=== PATIENT | male | born 1955 | race Caucasian/White ===

== ENCOUNTER → 2018-06-18 14:21 | Outpatient (CLI) | payer MEDICARE, MEDICAID, SELFPAY ==
[2018-06-18 14:36] LABS: Basophils % 0.4 % (0.1-2.0); Eosinophils % 0.5 % (0.1-12.0); Hematocrit 45.2 % (42.0-52.0); Lymphocytes # 1.5 K/mm3 (0.7-4.5); Lymphocytes % 19.5 % (10-50); Mean Corpuscular HGB Conc 33.3 g/dL (31.8-35.4); Mean Corpuscular Volume 102.2 fl (80-94); Mean Platelet Volume 9.1 fl (7.4-10.4); Monocytes # 0.4 K/mm3 (0.1-1.0); Monocytes % 5.2 % (1.7-9.3); Neutrophils # 5.7 K/mm3 (1.8-7.8); Neutrophils % 74.4 % (37.0-80.0); Platelet Count 223 K/mm3 (142-424); Red Blood Count 4.42 M/mm3 (4.60-6.20); Red Cell Distribution Width 13.7 % (11.5-17.5); White Blood Count 7.6 K/mm3 (4.8-10.8)
[2018-06-18 15:58] LABS: Alanine Aminotransferase 16 U/L (12-78); Albumin Level 4.1 gm/dL (3.4-5.0); Albumin/Globulin Ratio 1.2 (1.1-1.8); Alkaline Phosphatase 65 U/L (46-116); Anion Gap 18.5 mEq/L (5-15); Aspartate Amino Transferase 11 U/L (15-37); Bilirubin,Total 0.5 mg/dL (0.2-1.0); Blood Urea Nitrogen 8 mg/dL (7-18); Calcium 9.2 mg/dL (8.5-10.1); Carbon Dioxide 24 mmol/L (21.0-32.0); Chloride 101 mmol/L (98-107); Chol/HDL Ratio 2.9 (1-3.5); Cholesterol 197 mg/dL (140-200); Creatinine,Serum 0.91 mg/dL (0.70-1.30); Estimated Glomerular Filt Rate 84 ml/min (>60); Free T4 (Free Thyroxine) 0.87 ng/dl (0.76-1.46); GFR (African American) 101 ML/MIN (>60); Globulin 3.5 gm/dl (1.3-3.2); Glucose 94 mg/dL (74-106); HDL Cholesterol 68 mg/dL (27-67); LDL Cholesterol 117 mg/dL (0-130); Potassium 4.5 mmoL/L (3.5-5.1); Sodium 139 mmol/L (136-145); Thyroid Stimulating Hormone 2.16 uIU/ml (0.358-3.740); Total Protein,Serum 7.6 gm/dL (6.4-8.2); Triglycerides 58 mg/dL (30-200); VLDL Cholesterol 12 mg/dL (0-40)
== END ==
PROVIDERS: Visit Provider Emergency Medicine
DX: I73.9 Peripheral vascular disease, unspecified (principal); E78.00 Pure hypercholesterolemia, unspecified; R53.83 Other fatigue; M54.9 Dorsalgia, unspecified
CPT/HCPCS: 80053; 80061; 84439; 84443; 85025

== ENCOUNTER → 2018-07-03 09:43 | Outpatient (CLI) | payer MEDICARE, MEDICAID, SELFPAY ==
--- NOTE | 2018-07-03 09:49 | CI_ITS ---
Cerebrovascular Exam Indications: 785.9 Bruit. IMPRESSIONS 1. The bilateral vertebral arteries are patent with normal antegrade flow. 2. Study suggests less than 20% stenosis involving the right internal carotid artery. 3. Study suggests less than 20% stenosis involving the left internal carotid artery. History: Coronary artery disease. Risk factors: Lifelong nonsmoker. Carotid duplex study. Complete study and Doppler flow study including spectral analysis, color and farr scale imaging. Height: Height: 170.2cm. Height: 67in. Weight: Weight: 63.1kg. Weight: 138.7lb. Body mass index: BMI: 21.8kg/m^2. Body surface area: BSA: 1.73m^2. Location: Vascular laboratory. Patient status: Outpatient. Tables: Arterial flow: + +--------+--------+ Location V sys V ed + +--------+--------+ Right CCA - proximal 136cm/s 16.5cm/s + +--------+--------+ Right CCA - distal 99.8cm/s 22cm/s + +--------+--------+ Right ECA 84.9cm/s 11.8cm/s + +--------+--------+ Right ICA - proximal 77cm/s 19.6cm/s + +--------+--------+ Right ICA - mid 96.6cm/s 33cm/s + +--------+--------+ Right ICA - distal 86.4cm/s 22.8cm/s + +--------+--------+ Right vertebral 42.4cm/s 9.4cm/s + +--------+--------+ Left CCA - proximal 157cm/s 21.6cm/s + +--------+--------+ Left CCA - distal 169cm/s 27.5cm/s + +--------+--------+ Left ECA 138cm/s 13.8cm/s + +--------+--------+ Left ICA - proximal 61.9cm/s 15.7cm/s + +--------+--------+ Left ICA - mid 99.2cm/s 27.5cm/s + +--------+--------+ Left ICA - distal 107cm/s 33.4cm/s + +--------+--------+ Left vertebral 74.6cm/s 18.7cm/s + +--------+--------+ Velocity ratios: + + + + + + Right, V sys Right, V ed Left, V sys Left, V ed + + + + + + Max ICA/dist CCA 0.97 1.5 0.63 1.21 + + + + + + (Report amended ) Electronically signed by: Casper Fernandez [id number]
--- NOTE | 2018-07-03 09:49 | CA_ITS ---
PROCEDURE: 2-D M-mode and color Doppler study INDICATIONS FOR THE TEST: Chest pain COPD Heart Murmur+ Tobacco Smoking+ Palpitations Fatigue Syncope Edema Hypertension Diabetes Mellitus Rheumatic Fever SOB ALVARADO Obesity Hyperlipidemia Family History HD Additional History STENT,CAD PATIENT INFORMATION HEIGHT: 67 WEIGHT:139 GENDER: Male B/P:150/90 2-D/M-MODE INTERPRETATION: 2-D MEASUREMENTS OBSERVED VALUES IN CMS Right Ventricular Dimension (RVDd) 2.5 Interventricular Septum (Thickness)(IVsd) 1.5 Left Ventricular Internal Dimensions(LVIDd) 4.7 Left Ventricular Posterior Wall (Thickness)(LVPWd) 0.9 Aortic Root 3.5 Aortic Cusp Separation 2.1 Left Atrial Dimensions (LAD) 3.1 2D 1. Left atrium is mildly enlarged, left ventricle is normal size, mild qualitative concentric left ventricular hypertrophy, visually estimated ejection fraction 45-50%, there is mild inferior wall hypokinesis. 2. Right atrium and right ventricle are normal size and contractility. 3. The aortic valve is minimally thickened and fibrosed. 4. The mitral and tricuspid valve leaflets are minimally thickened identified. 5. The pulmonic valve is poorly visualized 6. No significant pericardial effusion noted. DOPPLER INTERROGATION: Doppler interrogation of the aortic, mitral and tricuspid valvular presence of mild mitral and tricuspid regurgitation, tricuspid regurgitation jet velocity is inadequate for calculation of the right ventricular systolic pressure, diastolic parameters are inconclusive. CONCLUSION 1. Mildly enlarged left atrium, normal left ventricular size, mild qualitative concentric left ventricular hypertrophy, visually estimated with mild inferior wall hypokinesis. Diastolic parameters are inconclusive. 2. Mild mitral and tricuspid regurgitation 3. No significant pericardial effusion noted.
== END ==
PROVIDERS: PCP Emergency Medicine; Visit Provider Emergency Medicine
DX: R09.89 Other specified symptoms and signs involving the circulatory and respiratory systems (principal); I25.10 Atherosclerotic heart disease of native coronary artery without angina pectoris; R01.1 Cardiac murmur, unspecified
CPT/HCPCS: 93306; 93880

== ENCOUNTER → 2018-07-07 13:27 | Outpatient (CLI) | payer MEDICARE, MEDICAID, SELFPAY ==
[2018-07-07 18:59] LABS: Amphetamine/Metha Screen,Urine Negative ng/mL (<1000); Barbiturates Screen,Urine Negative ng/mL (<200); Benzodiazepines Screen,Urine Negative ng/mL (<200); Cannabinoid Screen,Urine Positive ng/mL (<50); Cocaine Screen,Urine Negative ng/mL (<300); Methadone Screen,Urine Negative ng/mL (<300); Opiate Screen,Urine Negative ng/mL (<300); Phencyclidine Screen,Urine Negative ng/mL (<25)
[2018-07-13 10:11] LABS: Oxycodone Positive (.); Oxymorphone Positive (.)
[2018-07-14 07:02] LABS: Oxycodone Confirm 1379 ng/mL (Cutoff=100); Oxymorphone Confirm 1706 ng/mL (Cutoff=100)
== END ==
PROVIDERS: Visit Provider Emergency Medicine
DX: Z79.899 Other long term (current) drug therapy (principal)
CPT/HCPCS: 80305; 80365

== ENCOUNTER → 2018-08-05 14:12 | Outpatient (CLI) | payer MEDICARE, MEDICAID, SELFPAY ==
[2018-08-05 15:07] LABS: Amphetamine/Metha Screen,Urine Negative ng/mL (<1000); Barbiturates Screen,Urine Negative ng/mL (<200); Benzodiazepines Screen,Urine Negative ng/mL (<200); Cannabinoid Screen,Urine Positive ng/mL (<50); Cocaine Screen,Urine Negative ng/mL (<300); Methadone Screen,Urine Negative ng/mL (<300); Opiate Screen,Urine Negative ng/mL (<300); Phencyclidine Screen,Urine Negative ng/mL (<25)
[2018-08-11 14:32] LABS: Opiates Negative ng/mL (Cutoff=100)
== END ==
PROVIDERS: Visit Provider Nurse Practitioner Family
DX: G89.29 Other chronic pain (principal)
CPT/HCPCS: 80305; 80361; G0480

== ENCOUNTER → 2018-08-08 09:03 | Outpatient (CLI) | payer MEDICARE, MEDICAID, SELFPAY ==
--- NOTE | 2018-08-08 09:04 | MR_ITS ---
MR lumbar spine wo con HISTORY: Low back pain ITS.REASON: back pain ORDERING PHYSICIAN: Riki Kruse MD PATIENT AGE: 63 years Comparison: None TECHNIQUE: Standard multiplanar multiecho sequences are performed without contrast. 3-D MIP and myelographic images are also rendered and reviewed FINDINGS: There is normal limits. The cord ends at the L2 level. L2-L3: Unremarkable. L3-L4: Mild concentric bulging disc along with facet and ligamentum flavum hypertrophy with mild bilateral lateral recess and moderate bilateral foraminal narrowing. Increased T1 and T2 signal involves the anterosuperior aspect of L4 consistent with endplate changes L4-L5: Mild concentric bulging disc along with facet and ligamentum flavum hypertrophy with moderate bilateral foraminal narrowing. L5-S1: Bulging disc along with facet and ligamentum flavum hypertrophy. This is slightly eccentric toward the left. There is moderate to severe bilateral foraminal narrowing slightly greater on the right. There is hypertrophic change of the right SI joint. IMPRESSION: 1. L3-L4: Mild concentric bulging disc along with facet and ligamentum flavum hypertrophy with mild bilateral lateral recess and moderate bilateral foraminal narrowing. Increased T1 and T2 signal involves the anterosuperior aspect of L4 consistent with endplate changes 2. L4-L5: Mild concentric bulging disc along with facet and ligamentum flavum hypertrophy with moderate bilateral foraminal narrowing. 3. L5-S1: Bulging disc along with facet and ligamentum flavum hypertrophy. This is slightly eccentric toward the left. There is moderate to severe bilateral foraminal narrowing slightly greater on the right. 4. No extruded herniated disc evident
== END ==
PROVIDERS: PCP Emergency Medicine; Visit Provider Emergency Medicine
DX: M54.9 Dorsalgia, unspecified (principal); G89.29 Other chronic pain; M54.5 Low back pain
CPT/HCPCS: 72148; 76376

== ENCOUNTER → 2019-01-02 13:31 | Outpatient (CLI) | payer MEDICARE, MEDICAID, SELFPAY ==
[2019-01-02 15:00] LABS: Amphetamine/Metha Screen,Urine Negative ng/mL (<1000); Barbiturates Screen,Urine Negative ng/mL (<200); Benzodiazepines Screen,Urine Negative ng/mL (<200); Cannabinoid Screen,Urine Positive ng/mL (<50); Cocaine Screen,Urine Negative ng/mL (<300); Methadone Screen,Urine Negative ng/mL (<300); Opiate Screen,Urine Negative ng/mL (<300); Phencyclidine Screen,Urine Negative ng/mL (<25)
[2019-01-11 22:47] LABS: Opiates Negative (Cutoff=100)
== END ==
PROVIDERS: Visit Provider Emergency Medicine
DX: Z79.899 Other long term (current) drug therapy (principal)
CPT/HCPCS: 80305; 80361; 80365; G0480

== ENCOUNTER → 2019-02-09 09:48 | Outpatient (POV) | payer MEDICARE, MEDICAID, SELFPAY ==
[2019-02-09 09:59] VITALS: BP 143/84; PULSE 86; RESP 18; O2SAT 99; BMI 24.0
--- NOTE | 2019-02-09 12:53 | HMH.PMCON ---
Assessment and Plan (1) Foraminal stenosis of lumbar region Current visit: No Status: Chronic Category: Medical Code(s): M99.83 - Other biomechanical lesions of lumbar region (2) Lumbar disc disease with radiculopathy Current visit: No Status: Chronic Category: Medical Code(s): M51.16 - Intervertebral disc disorders with radiculopathy, lumbar region - Assessment and plan all Dx Assessment and Plan for all problems:: I discussed with the patient about some conservative ways of treating his pain. Patient states he will think about it. I also discussed epidural steroid injections he states he will also think about this. He would like to speak with his daughter first prior to making any decisions. At this point the patient is not a candidate for narcotics per our clinic policy patient has not completed conservative therapies or been seen by a surgeon. If the patient is interested in moving forward with injections we will schedule him an L4-L5 epidural steroid injection to help determine his baseline pain. Patient states he will call us back if he is interested in any form of treatment. Dr. Santana has reviewed this note and agrees with this plan of care. This note was dictated using voice recognition software and may contain errors or omissions HPI - Data of Consult Consult date: 02/09/19 Requesting Physician: Era Card APRN Primary Care Provider: Riki Kruse MD - Consult Narrative Reason for consult: Back pain, leg pain History of present illness: Mr. Turner is a 63 year old male who presents today for consultation in regards to his low back pain. He rates his pain an 8 out of 10. Patient states he has had back pain for many years. Patient states he is never tried any injection therapy, physical therapy, massage therapy, chiropractic therapy. Patient's only treatment as of yet is Percocet. Patient does have an MRI showing some degeneration along with ligamentum flavum hypertrophy and bulging disc. We did go over this together. Patient states that he drinks at least a 12 pack a week. He is also utilizing marijuana. CC: Era Card APRN [facility] History I have reviewed the patient's past medical history: Yes Medical History: Reports:: Coronary Artery Disease, Hyperlipidemia, Hypertension, Myocardial Infarction *Have you ever received a pneumonia vaccine?: Yes *Have you received a flu vaccine this season?: Yes Other Surgeries: Yes: Cardiac Catheterization, Coronary Stent Amputation: No Fractures: Yes (ribs from a fall) - *Social History Smoking Status: Current every day smoker Tobacco Type: cigarettes # Packs/Day (cigarettes): 1 #Yrs smoked (if former smoker): 50 Alcohol Intake: current Alcohol Intake Frequency:: a few times a week Substance Use Type: marijuana Last Used Substance: unknown *Occupational Status:: other Housing: house Household Members: other *Travel in the last 8 weeks: None Family Hx:: Cancer, Heart Attack Review of Systems - Review of Systems ROS General: no recent weight change, no fever, no sleep disturbances Respiratory: no cough, no shortness of air, no recurring pulmonary infections Cardiovascular/Peripheral Vascular: No chest pain, No palpitations, no edema, no shortness of breath. Gastrointestinal: no incontinence, normal bowel movements reported Genitourinary: no incontinence Musculoskeletal: Back pain, leg pain Psychiatric: normal mood/ affect Neurological: [denies weakness in extremities], [denies balance issues] Meds Home Medications Medication Instructions Recorded Confirmed Type clopidogrel 75 mg tablet 75 mg PO DAILY #90 tab 10/10/18 01/02/19 Rx gabapentin 100 mg capsule 100 mg PO TID #90 cap 10/10/18 01/02/19 Rx nitroglycerin 0.4 mg sublingual 0.4 mg SUBLINGUAL Q5-15M PRN #30 10/10/18 01/02/19 Rx tablet tab oxycodone-acetaminophen 10 mg-325 1 tab PO QID PRN #120 tab 01/02/19 Rx mg tablet Allergies Allergy/A
--- NOTE | 2019-02-09 13:01 | P.CONS_ITS ---
Assessment and Plan (1) Foraminal stenosis of lumbar region Current visit: No Status: Chronic Category: Medical Code(s): M99.83 - Other biomechanical lesions of lumbar region (2) Lumbar disc disease with radiculopathy Current visit: No Status: Chronic Category: Medical Code(s): M51.16 - Intervertebral disc disorders with radiculopathy, lumbar region - Assessment and plan all Dx Assessment and Plan for all problems:: I discussed with the patient about some conservative ways of treating his pain. Patient states he will think about it. I also discussed epidural steroid injections he states he will also think about this. He would like to speak with his daughter first prior to making any decisions. At this point the patient is not a candidate for narcotics per our clinic policy patient has not completed conservative therapies or been seen by a surgeon. If the patient is interested in moving forward with injections we will schedule him an L4-L5 epidural steroid injection to help determine his baseline pain. Patient states he will call us back if he is interested in any form of treatment. Dr. Santana has reviewed this note and agrees with this plan of care. This note was dictated using voice recognition software and may contain errors or omissions HPI - Data of Consult Consult date: 02/09/19 Requesting Physician: Era Card APRN Primary Care Provider: Riki Kruse MD - Consult Narrative Reason for consult: Back pain, leg pain History of present illness: Mr. Turner is a 63 year old male who presents today for consultation in regards to his low back pain. He rates his pain an 8 out of 10. Patient states he has had back pain for many years. Patient states he is never tried any injection therapy, physical therapy, massage therapy, chiropractic therapy. Patient's only treatment as of yet is Percocet. Patient does have an MRI showing some degeneration along with ligamentum flavum hypertrophy and bulging disc. We did go over this together. Patient states that he drinks at least a 12 pack a week. He is also utilizing marijuana. CC: Era Card APRN [facility] History I have reviewed the patient's past medical history: Yes Medical History: Reports:: Coronary Artery Disease, Hyperlipidemia, Hypertension, Myocardial Infarction *Have you ever received a pneumonia vaccine?: Yes *Have you received a flu vaccine this season?: Yes Other Surgeries: Yes: Cardiac Catheterization, Coronary Stent Amputation: No Fractures: Yes (ribs from a fall) - *Social History Smoking Status: Current every day smoker Tobacco Type: cigarettes # Packs/Day (cigarettes): 1 #Yrs smoked (if former smoker): 50 Alcohol Intake: current Alcohol Intake Frequency:: a few times a week Substance Use Type: marijuana Last Used Substance: unknown *Occupational Status:: other Housing: house Household Members: other *Travel in the last 8 weeks: None Family Hx:: Cancer, Heart Attack Review of Systems - Review of Systems ROS General: no recent weight change, no fever, no sleep disturbances Respiratory: no cough, no shortness of air, no recurring pulmonary infections Cardiovascular/Peripheral Vascular: No chest pain, No palpitations, no edema, no shortness of breath. Gastrointestinal: no incontinence, normal bowel movements reported Genitourinary: no incontinence Musculoskeletal: Back pain, leg pain Psychiatric: normal mood/ affect Neurological: [denies weakness in extremities], [denies balance issues] Meds H
== END ==
PROVIDERS: PCP Emergency Medicine; Visit Provider Clinical Nurse Specialist Family Health
DX: M48.061 Spinal stenosis, lumbar region without neurogenic claudication (principal); M51.16 Intervertebral disc disorders with radiculopathy, lumbar region
CPT/HCPCS: 99202

== ENCOUNTER → 2019-03-04 15:47 | Outpatient (CLI) | payer MEDICARE, MEDICAID, SELFPAY ==
[2019-03-04 19:55] LABS: Amphetamine/Metha Screen,Urine Negative ng/mL (<1000); Barbiturates Screen,Urine Negative ng/mL (<200); Benzodiazepines Screen,Urine Negative ng/mL (<200); Cannabinoid Screen,Urine Positive ng/mL (<50); Cocaine Screen,Urine Negative ng/mL (<300); Methadone Screen,Urine Negative ng/mL (<300); Opiate Screen,Urine Negative ng/mL (<300); Phencyclidine Screen,Urine Negative ng/mL (<25)
[2019-03-16 05:09] LABS: Oxycodone Positive (.); Oxymorphone Positive (.)
[2019-03-17 06:50] LABS: Oxycodone Confirm 1306 ng/mL (Cutoff=100); Oxymorphone Confirm 1670 ng/mL (Cutoff=100)
== END ==
PROVIDERS: Visit Provider Emergency Medicine
DX: M47.816 Spondylosis without myelopathy or radiculopathy, lumbar region (principal)
CPT/HCPCS: 80305; 80365

== ENCOUNTER → 2019-05-04 14:05 | Outpatient (CLI) | payer MEDICARE, MEDICAID, SELFPAY ==
[2019-05-04 16:57] LABS: Amphetamine/Metha Screen,Urine Negative ng/mL (<1000); Barbiturates Screen,Urine Negative ng/mL (<200); Benzodiazepines Screen,Urine Negative ng/mL (<200); Cannabinoid Screen,Urine Positive ng/mL (<50); Cocaine Screen,Urine Negative ng/mL (<300); Methadone Screen,Urine Negative ng/mL (<300); Opiate Screen,Urine Negative ng/mL (<300); Phencyclidine Screen,Urine Negative ng/mL (<25)
[2019-05-10 13:17] LABS: Oxycodone Positive (.); Oxymorphone Positive (.)
[2019-05-10 17:24] LABS: Oxycodone Confirm 876 ng/mL (Cutoff=100); Oxymorphone Confirm 1877 ng/mL (Cutoff=100)
== END ==
PROVIDERS: Visit Provider Emergency Medicine
DX: M47.816 Spondylosis without myelopathy or radiculopathy, lumbar region (principal); Z79.899 Other long term (current) drug therapy
CPT/HCPCS: 80305; 80365

== ENCOUNTER → 2019-08-25 13:41 | Outpatient (CLI) | payer MEDICARE, MEDICAID, SELFPAY ==
[2019-08-25 15:11] LABS: Amphetamine/Metha Screen,Urine Negative ng/ml (<1000); Barbiturates Screen,Urine Negative ng/ml (<200)
[2019-08-25 15:12] LABS: Benzodiazepines Screen,Urine Negative ng/ml (<200)
[2019-08-25 15:13] LABS: Cannabinoid Screen,Urine Positive ng/ml (<50)
[2019-08-25 15:15] LABS: Cocaine Screen,Urine Negative ng/ml (<300); Methadone Screen,Urine Negative ng/ml (<300)
[2019-08-25 15:16] LABS: Opiate Screen,Urine Negative ng/ml (<300)
[2019-08-25 15:17] LABS: Phencyclidine Screen,Urine Negative ng/ml (<25)
[2019-08-31 07:05] LABS: Oxycodone (GC/MS) 397 ng/mL (Cutoff=100)
[2019-08-31 10:03] LABS: Opiates Negative (Cutoff=100); Oxymorphone (GC/MS) 400 ng/mL (Cutoff=100)
== END ==
PROVIDERS: Visit Provider Emergency Medicine
DX: M47.816 Spondylosis without myelopathy or radiculopathy, lumbar region (principal); Z79.899 Other long term (current) drug therapy
CPT/HCPCS: 80305; 80361; 80365; G0480

== ENCOUNTER → 2019-11-03 13:32 | Outpatient (CLI) | payer MEDICARE, MEDICAID, SELFPAY ==
--- NOTE | 2019-11-03 13:58 | MR_ITS ---
PROCEDURE: MR LUMBAR SPINE WO CON CLINICAL INDICATION: back pain Low back pain, fall with injury and pain with persistent pain COMPARISON: SPLUMBWO MR lumbar spine wo con from 08/08/2018 TECHNIQUE: Standard multiplanar multiecho sequences are performed without contrast. 3-D MIP and myelographic images are also rendered and reviewed FINDINGS: There is normal alignment. The spinal cord ends at the L2 level. There is a transitional segment at the lumbosacral junction and is labeled as S1 similar to the previous exam. L1-L2 and L2-L3 have an unremarkable appearance. L3-L4: Minimal bulging disc with facet ligamentum hypertrophy with mild bilateral lateral recess and moderate bilateral foraminal narrowing the. There remains increased signal intensity involving the anterior superior aspect of L4 vertebral body on both T1 and T2 weighted images. L4-5: Bulging disc with facet and ligamentum hypertrophy with moderate bilateral lateral recess and foraminal narrowing as before. There is borderline narrowing of the canal unchanged L5-S1: Bulging disc slightly eccentric toward the left with moderate facet and ligamentum hypertrophy with moderate bilateral foraminal narrowing. There is an area of increased T2 signal along the anterior left aspect of S1 measuring approximately 2 cm.. This could be related to type 1 endplate changes. This is not significantly changed. There is borderline narrowing of the canal unchanged No extruded herniated disc evident. Overall no significant change. IMPRESSION: 1. Multilevel lumbar spondylosis with bulging discs along with facet ligamentum hypertrophy with foraminal and lateral recess narrowing and borderline narrowing of the canal. Please see above for detailed description at each level. Overall not significantly changed from 08/08/2018 2. No extruded herniated disc. 3. Increased T2 signal of the S1 vertebral body on the left anteriorly which could be due to endplate changes which are not significantly changed Dictated by: Casper Fernandez MD 11/04/2019 18:01 Electronically signed by Casper Fernandez MD in [place] 11/04/2019 18:01
== END ==
PROVIDERS: PCP Emergency Medicine; Visit Provider Emergency Medicine
DX: M47.816 Spondylosis without myelopathy or radiculopathy, lumbar region (principal)
CPT/HCPCS: 72148; 76376

== ENCOUNTER → 2020-07-20 08:35 | Outpatient (CLI) | payer MEDICARE, MEDICAID, SELFPAY ==
--- NOTE | 2020-07-20 08:36 | CA_ITS ---
APPROVED REPORT Pastoral Worker: XOCHITL Laterality: Bilateral Indications: bruit, CAD Risk Factors Hyperlipidemia Smoking Doppler Spectral Velocity Analysis ECA (R) 100.20/17.10 cm/s ECA (L) 140.90/20.50 cm/s dICA (R) 86.80/29.20 cm/s dICA (L) 97.60/30.60 cm/s Andie (R) 95.00/27.70 cm/s Andie (L) 84.70/27.00 cm/s pICA (R) 67.30/23.90 cm/s pICA (L) 87.00/17.60 cm/s dCCA (R) 116.60/26.70 cm/s dCCA (L) 112.80/25.10 cm/s pCCA (R) 124.00/20.30 cm/s pCCA (L) 137.90/27.90 cm/s Vert (R) 33.40/11.60 cm/s Vert (L) 76.90/25.60 cm/s ICA/CCA 0.82 ICA/CCA 0.86 Findings Duplex evaluation demonstrates stenosis of the right proximal internal carotid artery <20% with PSV <140 cm/sec, EDV <100 cm/sec, and IC/CC Ratio <4.0. Duplex evaluation demonstrates stenosis of the left proximal internal carotid artery <20% with PSV <140 cm/sec, EDV <100 cm/sec, and IC/CC Ratio <4.0. Conclusion No increased velocities to suggest hemodynamically significant stenosis in either internal carotid artery. Electronically signed by : Casper Fernandez MD 07/20/2020 15:48:24
--- NOTE | 2020-07-20 08:36 | CA_ITS ---
APPROVED REPORT EXAM: Comprehensive 2D, Doppler, and color-flow Echocardiogram Procurement Coordinator: Nafisa Rinaldi, RT(R) Ht: 5 ft 7 in Wt: 132lbs BSA: 1.70 BP: 122/70 mmHg Indications: Murmur, smoker, hyperlipidemia, CAD, old [place], stent, facet syndrome 2D Dimensions LVOT 2.02 cm (M/F) 1.5-2.5 M-Mode Dimensions RVDd 2.54 cm (0.9-2.6) LA Diam 3.66 cm (1.9-4.0) LVDd 5.15 cm (3.5-5.7) Ao Diam 3.05 cm (2.0-3.7) LVDs 4.01 cm (3.5-5.7) IVSd 0.79 cm (0.6-1.1) PWd 0.68 cm (0.6-1.1) EF (Teich) 44.40% FS 22.10% EDV (Teich) 126.60 mL ESV (Teich) 70.40 mL LV Diastology E Decel Time 183.00 (160-240 msec) E/A Ratio 1.0 MED E' 12.40 (< 7 cm/sec) E'/MED E' Ratio 4.52 (>14) LAT E' 9.20 (<10 cm/sec) E/LAT E' Ratio 6.10 (>14) Mitral Valve MV E Max Bobby. 56.00 (40-130 cm/s) MV A Velocity 55.00 (40-130 cm/s) E/A Ratio 1.02 MV Decel. Time 183.00 (160-240 ms) MV PHT 54.00 ms Left Ventricle Left atrium is mildly enlarged, left ventricle is normal size, visually estimated ejection fraction 55% with no regional wall motion abnormality, diastolic parameters are inconclusive. Right Ventricle Right atrium and right ventricular qualitatively mildly enlarged with normal contractility. Aortic Valve Aortic valve is thickened and calcified leaflet chordae display good mobility, there is no aortic stenosis or aortic insufficiency. Mitral Valve Mitral valve is grossly normal, there is mild mitral regurgitation. Tricuspid Valve Tricuspid valve is grossly normal, there is mild tricuspid regurgitation, tricuspid regurgitation jet velocity is inadequate for calculation of the right ventricular systolic pressure. Pulmonic Valve Pulmonic valve is poorly visualized. Great Vessels Aortic root is normal size. Pericardium No significant pericardial effusion noted. Conclusion 1. Normal left ventricular size, preserved left ventricular systolic function, visually estimated ejection fraction 55% with no regional wall motion abnormality, diastolic parameters are inconclusive. 2. Mildly enlarged right ventricle with normal contractility. 3. Thickened and calcified aortic valve without aortic stenosis or aortic insufficiency. 4. Mild mitral and tricuspid regurgitation. 5. No significant pericardial effusion noted. Electronically signed by : Helder Garcia, 07/21/2020 15:24:47
[2020-07-20 10:24] LABS: Basophils # 0.1 K/mm3 (0-0.2); Basophils % 0.8 % (0.1-2.0); Eosinophils # 0.1 K/mm3 (0.0-0.4); Eosinophils % 0.8 % (0.1-12.0); Hematocrit 46.6 % (42.0-52.0); Hemoglobin 15.1 g/dL (14.1-18.0); Lymphocytes # 1.4 K/mm3 (0.7-4.5); Lymphocytes % 19.7 % (10-50); Mean Corpuscular HGB Conc 32.5 g/dL (31.8-35.4); Mean Corpuscular Hemoglobin 34.3 pg (27.0-31.2); Mean Corpuscular Volume 105.4 fl (80-94); Mean Platelet Volume 8.8 fl (7.4-10.4); Monocytes # 0.4 K/mm3 (0.1-1.0); Monocytes % 5.5 % (1.7-9.3); Neutrophils # 5.4 K/mm3 (1.8-7.8); Neutrophils % 73.2 % (37.0-80.0); Platelet Count 145 K/mm3 (142-424); Red Blood Count 4.42 M/mm3 (4.60-6.20); Red Cell Distribution Width 14.1 % (11.5-17.5); White Blood Count 7.3 K/mm3 (4.8-10.8)
[2020-07-20 13:26] LABS: Alanine Aminotransferase 9 U/L (12-78); Albumin Level 4.4 g/dl (3.5-5.0); Albumin/Globulin Ratio 1.6 (1.1-1.8); Alkaline Phosphatase 71 U/L (38-126); Anion Gap 8.8 mEq/L (5-15); Aspartate Amino Transferase 22 U/L (17-59); Bilirubin,Total 0.7 mg/dl (0.2-1.3); Blood Urea Nitrogen 7 mg/dl (9-20); Calcium 9.6 mg/dl (8.4-10.2); Carbon Dioxide 30 mmol/L (22.0-30.0); Chloride 105 mmol/L (98-107); Cholesterol 168 mg/dl (140-200); Estimated Glomerular Filt Rate 96 ml/min (>60); GFR (African American) 117 ML/MIN (>60); Globulin 2.8 g/dL (1.3-3.2); Glucose 100 mg/dl (74-100); HDL Cholesterol 83 mg/dl (40-60); Potassium 4.8 mmoL/L (3.5-5.1); Sodium 139 mmol/L (136-145); Total Protein,Serum 7.2 g/dl (6.3-8.2); Triglycerides 113 mg/dl (30-150); VLDL Cholesterol 23 mg/dL (0-40)
[2020-07-20 13:37] LABS: Direct LDL Cholesterol 61.97 mg/dL (100-129)
[2020-07-20 13:43] LABS: Free T4 (Free Thyroxine) 0.93 ng/dl (0.78-2.19)
[2020-07-20 13:56] LABS: Thyroid Stimulating Hormone 2.04 uIU/mL (0.465-4.68)
== END ==
PROVIDERS: PCP Emergency Medicine; Visit Provider Emergency Medicine
DX: R01.1 Cardiac murmur, unspecified (principal); R09.89 Other specified symptoms and signs involving the circulatory and respiratory systems; R53.83 Other fatigue; E78.5 Hyperlipidemia, unspecified
CPT/HCPCS: 36415; 80053; 80061; 84439; 84443; 85025; 93306; 93880

== ENCOUNTER → 2020-08-08 14:15 | Outpatient (CLI) | payer MEDICARE, MEDICAID, SELFPAY ==
[2020-08-08 15:53] LABS: Amphetamine/Metha Screen,Urine Negative ng/ml (<1000)
[2020-08-08 15:54] LABS: Barbiturates Screen,Urine Negative ng/ml (<200); Benzodiazepines Screen,Urine Negative ng/ml (<200)
[2020-08-08 15:55] LABS: Cannabinoid Screen,Urine Positive ng/ml (<50)
[2020-08-08 15:56] LABS: Cocaine Screen,Urine Negative ng/ml (<300); Methadone Screen,Urine Negative ng/ml (<300)
[2020-08-08 15:57] LABS: Opiate Screen,Urine Negative ng/ml (<300)
[2020-08-08 15:58] LABS: Phencyclidine Screen,Urine Negative ng/ml (<25)
== END ==
PROVIDERS: Visit Provider Emergency Medicine
DX: M47.816 Spondylosis without myelopathy or radiculopathy, lumbar region (principal)
CPT/HCPCS: 80305

== ENCOUNTER → 2021-02-01 11:10 | Outpatient (CLI) | payer MEDICARE, MEDICAID, SELFPAY ==
--- NOTE | 2021-02-01 | CA_ITS ---
APPROVED REPORT Exam: Pharmacologic Technologist: Prerna Beavers, Ht: 5 ft 7 in Wt: 134 lbs BSA: 1.71 m2 HR: 65 bpm BP: 188/84 mmHg Medical History Medications: Gabapentin,,,,, PERCOCET,,,,, CloPIdogrel,,,,, Nitroglycerin,,,,, Stress Test Details Test: LEXISCAN HR Resting HR: 65 bpm Max Heart Rate (APMHR): 153.931481 bpm Max HR Achieved: 99 bpm Target HR (85% APMHR): 130.097180 bpm % of APMHR: 64.71 Recovery HR: 68 bpm BP Resting BP: 188/84 mmHg Max BP: 188/84 mmHg Recovery BP: 175.0/81.0 mmHg ECG Resting ECG: NSR, normal Clinical Exercise duration: 04:00 min Highest Stage Achieved: Exercise capacity: 1.0 METs Stress ECG Conclusion Symptoms: SOA, mild nausea. No CP. Arrhythmias/Ectopy: Occ PVC. ST-T Changes: No significant changes. Conclusion: Unremarkable Lexiscan stress. Myoview images reported separately. Electronically signed by : Helder Garcia MD 02/02/2021 14:52:39
--- NOTE | 2021-02-01 11:11 | NM_ITS ---
APPROVED REPORT Exam: Nuclear Stress Test Indication: CAD, HX CA, HTN, TOB USE, C.P., SOB, FATIGUE Patient Location: Outpatient Stress Tech: Prerna Beavers MT Tech:DEVON Virgen RT (R)(N)(M) Ht: 7 ft 5 in Wt: 140 lbs HR: 65 bpm BP: 188/84 mmHg BSA: 2.14 m2 BMI: 12.4 History: CAD, HX CA, HTN, TOB USE, C.P., SOB, FATIGUE Procedure: Patient received a 0.4 mg of intravenous Lexiscan, resting heart rate 65 bpm, resting blood pressure 188/84 mmHg, with Lexiscan maximum heart rate achived was 97 bpm which is 85 % of the maximum predicted heart rate and blood pressure was 165/77 mmHg. With Lexiscan, patient denied any complaint of chest pain. Electrocardiogram Resting electrocardiogram shows sinus rhythm, with Lexiscan there is less than 1.[address] segment depression noted from the baseline EKG. The EKG portion of the Lexiscan is nondiagnostic. Cardiac Stress and Resting SPECT Images: Cardiac Stress and Resting SPECT images were obtained using technetium 99m Myoview 30.7 mCi stress and 10.57 mCi at rest. Gated SPECT for analysis of segmental wall motion and calculation of the ejection fraction also done. Prone images were also obtained. Cardiac stress and resting SPECT images show a partial reversible defect moderate sized area involving the anterior apical and apical wall, consistent with mixed ischemia and scar, computer derived ejection fraction is 49% with moderate anterior apical wall hypokinesis, right ventricle is normal size and contractility. Conclusion: 1. The EKG portion of the Lexiscan is nondiagnostic. 2. Scintigraphic evidence of mixed ischemia and scar involving the anterior apical and apical wall, computer derived ejection fraction is 49% with segmental wall motion abnormality described above, right ventricle is normal size and contractility. 3. Abnormal Lexiscan Myoview study. Electronically signed by : Helder Garcia MD 02/02/2021 15:03:47
[2021-02-01 14:39] LABS: Amphetamine/Metha Screen,Urine Negative ng/ml (<1000)
[2021-02-01 14:40] LABS: Barbiturates Screen,Urine Negative ng/ml (<200); Benzodiazepines Screen,Urine Negative ng/ml (<200)
[2021-02-01 14:41] LABS: Cannabinoid Screen,Urine Positive ng/ml (<50)
[2021-02-01 14:42] LABS: Cocaine Screen,Urine Negative ng/ml (<300); Methadone Screen,Urine Negative ng/ml (<300)
[2021-02-01 14:43] LABS: Opiate Screen,Urine Negative ng/ml (<300); Phencyclidine Screen,Urine Negative ng/ml (<25)
== END ==
PROVIDERS: PCP Emergency Medicine; Visit Provider Emergency Medicine
DX: R07.9 Chest pain, unspecified (principal); M47.816 Spondylosis without myelopathy or radiculopathy, lumbar region
CPT/HCPCS: 78452; 80305; 93017; A9502; J2785

== ENCOUNTER → 2021-04-25 14:04 | Outpatient (CLI) | payer MEDICARE, MEDICAID, SELFPAY ==
[2021-04-25 14:47] LABS: Amphetamine/Metha Screen,Urine Negative ng/ml (<1000)
[2021-04-25 14:48] LABS: Barbiturates Screen,Urine Negative ng/ml (<200)
[2021-04-25 14:49] LABS: Benzodiazepines Screen,Urine Negative ng/ml (<200); Cannabinoid Screen,Urine Positive ng/ml (<50)
[2021-04-25 14:50] LABS: Cocaine Screen,Urine Negative ng/ml (<300)
[2021-04-25 14:51] LABS: Methadone Screen,Urine Negative ng/ml (<300); Opiate Screen,Urine Negative ng/ml (<300)
[2021-04-25 14:52] LABS: Phencyclidine Screen,Urine Negative ng/ml (<25)
== END ==
PROVIDERS: Visit Provider Emergency Medicine
DX: M47.816 Spondylosis without myelopathy or radiculopathy, lumbar region (principal)
CPT/HCPCS: 80305

== ENCOUNTER → 2021-07-21 14:53 | Outpatient (CLI) | payer MEDICARE, MEDICAID, SELFPAY ==
[2021-07-21 16:24] LABS: Barbiturates Screen,Urine Negative ng/ml (<200); Benzodiazepines Screen,Urine Negative ng/ml (<200)
[2021-07-21 16:25] LABS: Amphetamine/Metha Screen,Urine Negative ng/ml (<1000); Cannabinoid Screen,Urine Positive ng/ml (<50)
[2021-07-21 16:26] LABS: Cocaine Screen,Urine Negative ng/ml (<300)
[2021-07-21 16:27] LABS: Methadone Screen,Urine Negative ng/ml (<300); Opiate Screen,Urine Negative ng/ml (<300)
[2021-07-21 16:28] LABS: Phencyclidine Screen,Urine Negative ng/ml (<25)
== END ==
PROVIDERS: Visit Provider Emergency Medicine
DX: M47.816 Spondylosis without myelopathy or radiculopathy, lumbar region (principal)
CPT/HCPCS: 80305

== ENCOUNTER → 2021-11-13 09:16 | Outpatient (CLI) | payer MEDICARE, MEDICAID, SELFPAY ==
[2021-11-13 15:01] LABS: Amphetamine/Metha Screen,Urine Negative ng/ml (<1000); Barbiturates Screen,Urine Negative ng/ml (<200)
[2021-11-13 15:02] LABS: Benzodiazepines Screen,Urine Negative ng/ml (<200)
[2021-11-13 15:03] LABS: Cannabinoid Screen,Urine Positive ng/ml (<50); Cocaine Screen,Urine Negative ng/ml (<300)
[2021-11-13 15:04] LABS: Methadone Screen,Urine Negative ng/ml (<300)
[2021-11-13 15:05] LABS: Opiate Screen,Urine Negative ng/ml (<300); Phencyclidine Screen,Urine Negative ng/ml (<25)
== END ==
LOC: LAB 11-14 10:48 → LAB.DROPOF 11-14 10:52
PROVIDERS: PCP Emergency Medicine; Visit Provider Emergency Medicine
DX: M47.816 Spondylosis without myelopathy or radiculopathy, lumbar region (principal)
CPT/HCPCS: 80305

== ENCOUNTER → 2022-03-09 21:05 | Outpatient (CLI) | payer MEDICARE, MEDICAID, SELFPAY ==
[2022-03-09 16:32] LABS: Amphetamine/Metha Screen,Urine Negative ng/ml (<1000); Barbiturates Screen,Urine Negative ng/ml (<200)
[2022-03-09 16:34] LABS: Benzodiazepines Screen,Urine Negative ng/ml (<200)
[2022-03-09 16:35] LABS: Cannabinoid Screen,Urine Positive ng/ml (<50)
[2022-03-09 16:36] LABS: Cocaine Screen,Urine Negative ng/ml (<300)
[2022-03-09 16:37] LABS: Methadone Screen,Urine Negative ng/ml (<300); Opiate Screen,Urine Negative ng/ml (<300)
[2022-03-09 16:38] LABS: Phencyclidine Screen,Urine Negative ng/ml (<25)
== END ==
PROVIDERS: PCP Emergency Medicine; Visit Provider Emergency Medicine
DX: Z79.899 Other long term (current) drug therapy (principal)
CPT/HCPCS: 80305

== ENCOUNTER → 2022-05-08 10:45 | Outpatient (CLI) | payer MEDICARE, MEDICAID, SELFPAY ==
[2022-05-08 18:06] LABS: Amphetamine/Metha Screen,Urine Negative ng/ml (<1000)
[2022-05-08 18:07] LABS: Barbiturates Screen,Urine Negative ng/ml (<200)
[2022-05-08 18:08] LABS: Benzodiazepines Screen,Urine Negative ng/ml (<200)
[2022-05-08 18:09] LABS: Cannabinoid Screen,Urine Positive ng/ml (<50)
[2022-05-08 18:10] LABS: Cocaine Screen,Urine Negative ng/ml (<300); Methadone Screen,Urine Negative ng/ml (<300)
[2022-05-08 18:11] LABS: Opiate Screen,Urine Negative ng/ml (<300); Phencyclidine Screen,Urine Negative ng/ml (<25)
== END ==
PROVIDERS: PCP Emergency Medicine; Visit Provider Emergency Medicine
DX: M51.16 Intervertebral disc disorders with radiculopathy, lumbar region (principal)
CPT/HCPCS: 80305

== ENCOUNTER → 2022-07-04 14:57 | Outpatient (CLI) | payer MEDICARE, MEDICAID, SELFPAY ==
[2022-07-04 17:14] LABS: Amphetamine/Metha Screen,Urine Negative ng/ml (<1000)
[2022-07-04 17:15] LABS: Barbiturates Screen,Urine Negative ng/ml (<200); Benzodiazepines Screen,Urine Negative ng/ml (<200)
[2022-07-04 17:16] LABS: Cannabinoid Screen,Urine Positive ng/ml (<50)
[2022-07-04 17:17] LABS: Cocaine Screen,Urine Negative ng/ml (<300); Methadone Screen,Urine Negative ng/ml (<300)
[2022-07-04 17:19] LABS: Opiate Screen,Urine Negative ng/ml (<300); Phencyclidine Screen,Urine Negative ng/ml (<25)
== END ==
PROVIDERS: PCP Emergency Medicine; Visit Provider Emergency Medicine
DX: M51.16 Intervertebral disc disorders with radiculopathy, lumbar region (principal)
CPT/HCPCS: 80305

== ENCOUNTER → 2022-09-28 19:05 | Outpatient (CLI) | payer MEDICARE, MEDICAID, SELFPAY ==
[2022-09-28 20:16] LABS: Amphetamine/Metha Screen,Urine Negative ng/ml (<1000)
[2022-09-28 20:19] LABS: Barbiturates Screen,Urine Negative ng/ml (<200); Benzodiazepines Screen,Urine Negative ng/ml (<200)
[2022-09-28 20:20] LABS: Cannabinoid Screen,Urine Positive ng/ml (<50)
[2022-09-28 20:21] LABS: Cocaine Screen,Urine Negative ng/ml (<300); Methadone Screen,Urine Negative ng/ml (<300)
[2022-09-28 20:22] LABS: Opiate Screen,Urine Negative ng/ml (<300)
[2022-09-28 20:23] LABS: Phencyclidine Screen,Urine Negative ng/ml (<25)
== END ==
PROVIDERS: PCP Emergency Medicine; Visit Provider Emergency Medicine
DX: M51.16 Intervertebral disc disorders with radiculopathy, lumbar region (principal)
CPT/HCPCS: 80305

== ENCOUNTER 2023-02-01 13:03 | Outpatient (CLI) | payer MEDICARE, MEDICAID, SELFPAY ==
[2023-02-01 13:11] VITALS: BMI 12.2
[2023-02-01 13:30] VITALS: BP 119/58; PULSE 118; RESP 20; TEMP 36.8; O2SAT 90
[2023-02-01 13:32] LABS: Basophils % 0.2 % (0.1-2.0); Eosinophils # 0.1 K/mm3 (0.0-0.4); Eosinophils % 1.7 % (0.1-12.0); Hematocrit 32.6 % (42.0-52.0); Hemoglobin 10.3 g/dL (14.1-18.0); Lymphocytes # 0.6 K/mm3 (0.7-4.5); Lymphocytes % 8.4 % (10-50); Mean Corpuscular HGB Conc 31.7 g/dL (31.8-35.4); Mean Corpuscular Hemoglobin 27.6 pg (27.0-31.2); Mean Platelet Volume 8.9 fl (7.4-10.4); Monocytes # 0.2 K/mm3 (0.1-1.0); Monocytes % 2.8 % (1.7-9.3); Neutrophils # 6.4 K/mm3 (1.8-7.8); Platelet Count 176 K/mm3 (142-424); Red Blood Count 3.74 M/mm3 (4.60-6.20); Red Cell Distribution Width 18.3 % (11.5-17.5); White Blood Count 7.3 K/mm3 (4.8-10.8)
[2023-02-01 13:38] LABS: MANUAL DIFFERENTIAL MANUAL DIFFERENTIAL (MANUAL DIFF)
[2023-02-01 13:44] LABS: Alanine Aminotransferase 30 U/L (12-78); Albumin Level 3.1 g/dl (3.5-5.0); Anion Gap 16.3 mEq/L (5-15); Aspartate Amino Transferase 61 U/L (17-59); Bilirubin,Total 1.3 mg/dl (0.2-1.3); Blood Urea Nitrogen 12 mg/dl (9-20); Calcium 8.5 mg/dl (8.4-10.2); Carbon Dioxide 27 mmol/L (22.0-30.0); Chloride 95 mmol/L (98-107); Creatinine Clearance Estimated 35 mL/min (50-200); Estimated Glomerular Filt Rate 134 ml/min (>60); GFR (African American) 162 ML/MIN (>60); Globulin 3.2 g/dL (1.3-3.2); Glucose 163 mg/dl (74-100); Potassium 3.3 mmoL/L (3.5-5.1); Sodium 135 mmol/L (136-145); Total Protein,Serum 6.3 g/dl (6.3-8.2)
[2023-02-01 13:45] LABS: Lymphocytes % 8 % (10-50); Monocytes % 1 % (2-9); Myelocytes % 1 (0-1); Neutrophils % 89 % (42-76); Nucleated Red Blood Cells 1; Platelet Estimate Normal; RBC Morphology Normal; Total Cells Counted 100
[2023-02-01 14:05] LABS: Alkaline Phosphatase 2363 U/L (38-126)
[2023-02-01 14:34] VITALS: BP 129/66; PULSE 114; RESP 20; O2SAT 90
[2023-02-01 15:40] VITALS: BP 116/66; PULSE 115; RESP 20; O2SAT 91
== END 2023-02-01 15:40 | disposition home or self-care (01) ==
LOC: INF 13:04
PROVIDERS: PCP Emergency Medicine; Visit Provider Emergency Medicine
DX: E86.0 Dehydration (principal)
CPT/HCPCS: 80053; 85007; 85025; 96360; 96361